=== PATIENT | female | born 1995 | race Hispanic/Latino ===

== ENCOUNTER 2018-05-08 13:50 | Emergency (ER) | payer OTHER ==
[2018-05-08 16:02] LABS: BASO % 0.4 % (0.0-2.0); EOS % 0.6 % (0.0-4.0); HEMOGLOBIN 13.5 g/dL (12.0-16.0); LYMPH # 2.2 K/uL (1.0-4.3); LYMPH % 33.3 % (20.0-40.0); MEAN CELL VOLUME 95.8 fl (81.0-99.0); MEAN CORPUSCULAR HEMOGLOBIN 31.8 pg (27.0-31.0); MEAN CORPUSCULAR HGB CONC 33.2 g/dL (33.0-37.0); MEAN PLATELET VOLUME 8.3 fl (7.2-11.7); MONO # 0.6 K/uL (0.0-0.8); MONO % 8.9 % (0.0-10.0); NEUT # 3.7 K/uL (1.8-7.0); NEUT % 56.8 % (50.0-75.0); RBC 4.25 Mil/uL (3.80-5.20); RED CELL DISTRIBUTION WIDTH 12.1 % (11.5-14.5); WHITE BLOOD COUNT 6.5 K/uL (4.8-10.8)
[2018-05-08 16:15] LABS: ALB/GLOB RATIO 1.7 (1.0-2.1); ALT/SGPT 28 U/L (9-52); AST/SGOT 28 U/L (14-36); BLOOD UREA NITROGEN 5 mg/dl (7-17); CALCIUM 9.8 mg/dL (8.4-10.2); GFR NON-AFRICAN AMERICAN > 60
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
[2018-05-08 17:52] VITALS: BP 123/74; PULSE 75; RESP 15; TEMP 97.9
--- NOTE | 2018-05-08 18:02 | CP.PCM.CON ---
History of Present Illness - History of Present Illness History of Present Illness: Podiatry Consult Note for Dr. Ross: 22 yo female, with no pertinent PMHx, seen and examined in the ED for L foot pain. Patient admits to hitting the top of her foot two weeks ago at home after running in the house. She states that she immediately felt pain and experienced pain, swelling, and bruising after the incident. She denies any other pedal complaints at this time. Denies N/V/F/SOB/CP. PMHX: denIES ALL: NKDA SHx: lives in [place] with her family Review of Systems - Review of Systems Review of Systems: As per HPI Past Patient History - Past Social History Alcohol: Occasional Drugs: Denies - PSYCHIATRIC Hx Substance Use: No Meds Home Medications: Home Medication List Medication Instructions Recorded Confirmed Type Ibuprofen [Motrin Tab] 600 mg PO Q6H PRN 7 Days tab 05/08/18 Rx Allergies/Adverse Reactions: Allergies Allergy/AdvReac Type Severity Reaction Status Date / Time No Known Allergies Allergy Verified 05/08/18 14:15 Physical Exam - Constitutional Appears: Well, Non-toxic, No Acute Distress - Head Exam Head Exam: ATRAUMATIC, NORMOCEPHALIC - Extremities Exam Additional comments: Vascular: DP/PT 2/4, TG warm to warm, CFT < 3 seconds to all digits, mild edema noted to L 5th digit Ortho: Mild tenderness to palpation to L 5th digit, mMT 5/5 in all compartments, no gross deformities noted Neuro: Gross and protective sensation intact Derm: Mild erythema noted to L 5th digit, no open lesions, no clinical signs of infection, no ecchymosis noted - Neurological Exam Neurological exam: Alert, Oriented x3 - Psychiatric Exam Psychiatric exam: Normal Affect, Normal Mood - Skin Skin Exam: Warm Results - Vital Signs Recent Vital Signs: Last Vital Signs Temp 97.9 F 05/08/18 17:51 Pulse 75 05/08/18 17:51 Resp 15 05/08/18 17:51 BP 123/74 05/08/18 17:51 Pulse Ox 99 05/08/18 17:51 - Labs Result Diagrams: 05/08/18 15:35 05/08/18 15:35 Labs: Laboratory Results - last 24 hr 05/08/18 05/08/18 15:35 15:35 WBC 6.5 RBC 4.25 Hgb 13.5 Hct 40.7 MCV 95.8 MCH 31.8 H MCHC 33.2 RDW 12.1 Plt Count 249 MPV 8.3 Neut % (Auto) 56.8 Lymph % (Auto) 33.3 Fajardo % (Auto) 8.9 Eos % (Auto) 0.6 Baso % (Auto) 0.4 Neut # (Auto) 3.7 Lymph # (Auto) 2.2 Fajardo # (Auto) 0.6 Eos # (Auto) 0.0 Baso # (Auto) 0.0 Sodium 142 Potassium 4.0 Chloride 108 H Carbon Dioxide 25 Anion Gap 13 BUN 5 L Creatinine 0.6 L Est GFR ( Amer) > 60 Est GFR (Non-Af Amer) > 60 Random Glucose 121 H Calcium 9.8 Total Bilirubin 0.5 AST 28 ALT 28 Alkaline Phosphatase 43 Total Protein 7.9 Albumin 5.0 Globulin 2.9 Albumin/Globulin Ratio 1.7 Assessment & Plan - Assessment and Plan (Free Text) Assessment: 22 yo female, with no pertinent PMHx, seen and examined in the ED for L foot pain. Plan: Patient seen and evaluated with all questions and concerns addressed Discussed in detail with Dr. Cody Lal foot x-rays taken: Fracture noted at the medial base of 5th proximal phalanx 4th and 5th digits faustino splinted, patient instructed how to apply faustino splint at home Surgical shoe dispensed and instructed to wear, discussed the importance of immobilizing fracture Patient to follow up with Dr. Ross in her office in 1 week Thank you for the consult - Date & Time Date: 05/08/18 Time: 18:01
[2018-05-08 23:44] VITALS: O2SAT 100
== END 2018-05-08 17:52 | disposition home or self-care (01) ==
LOC: H.ER 13:50
DX: R53.83 Other fatigue (principal); S92.902A Unspecified fracture of left foot, initial encounter for closed fracture; R51 Headache; V43.52XA Car driver injured in collision with other type car in traffic accident, initial encounter; Y92.410 Unspecified street and highway as the place of occurrence of the external cause